=== PATIENT | female | born 1930 | race Caucasian/White ===

== ENCOUNTER 2016-08-28 10:21 | Emergency (ER) | payer MEDICARE, BC ==
[~2016-08-28] VITALS: Ht 162.6 cm; Wt 67.0 kg
[~2016-08-28 10:21] MED LIST: ARIM1TAB PO; ATOR20TA42 PO; BUDE3CAP PO; CALC600T34 PO; CITA10SO PO; DABI150 PO; GLUC500C3 PO; HYDR-3533 PO; IMOD2TAB PO; LOSA50TA PO; METO25 PO; PROM25SU8 PO; VITA100017 PO; VITA400C70 PO; VITA400D PO
[2016-08-28 10:27] VITALS: BP 148/74; PULSE 84; RESP 16; TEMP 100.2; O2SAT 96
[2016-08-28] MEDS ORDERED: [UNRECOGNIZED DRUG - OTHER] PO (11:00)
[2016-08-28] MEDS ORDERED: CALC500T35 PO (11:00)
[2016-08-28] MEDS ORDERED: LOSA50TA2 PO (11:00)
[2016-08-28] MEDS ORDERED: RIVA1.5C PO (11:00)
[2016-08-28] MEDS ORDERED: ANAS1TAB PO (11:00)
[2016-08-28] MEDS ORDERED: METO25TA3 PO (11:00)
[2016-08-28] MEDS ORDERED: VITA10007 PO (11:00)
[2016-08-28] MEDS ORDERED: BOSWTAB2 PO (11:00)
[2016-08-28] MEDS ORDERED: CITA10TA4 PO (11:00)
[2016-08-28] MEDS ORDERED: BUDE9TAB PO (11:00)
[2016-08-28] MEDS ORDERED: PRAD150C PO (11:00)
[2016-08-28] MEDS ORDERED: ATOR20TA15 PO (11:00)
[2016-08-28] MEDS ORDERED: AMOX875T PO (11:13)
--- NOTE | 2016-08-28 11:17 | PD ---
HPI Chief Complaint: ENT Complaint Time Seen by Provider: 11:14 Travel History International Travel<30 days: No Contact w/Intl Traveler<30days: No Traveled to known affect area: No History of Present Illness HPI 85-year-old female that presents to the ED for evaluation of cold-like symptoms including right ear pain. Per patient she has had cough and runny nose for the past couple of days but the right ear has been given issues since 2 days now. Patient she denies any shortness of breath chest pain. No fevers chills or sweats. No sick contacts. No recent travel. No discharge from the ear. Patient has a lot of congestion. No allergies to medication. Has not taken anything for this. Has not seen anybody for this. PFSH Past Medical History Hx Anticoagulant Therapy: Yes Arthritis: Yes Atrial Fibrillation: Yes Heart Rhythm Problems: Yes Cancer: No Cardiovascular Problems: Yes High Cholesterol: Yes Congestive Heart Failure: No Cerebrovascular Accident: Yes (TIA) Diabetes: No Diminished Hearing: No Endocrine: No Gastrointestinal Disorders: No Glaucoma: No Genitourinary: No Hepatitis: No Hiatal Hernia: No Hypertension: Yes Immune Disorder: No Implanted Vascular Access Dvce: No Musculoskeletal: Yes Neurologic: Yes Psychiatric: No Reproductive: No Respiratory: No Immunizations Current: Yes Thyroid Disease: No Tetanus Vaccination: < 5 Years Influenza Vaccination: Yes ?: Not Menopausal: Yes Past Surgical History Abdominal Surgery: No Cardiac Surgery: No Ear Surgery: No Endocrine Surgery: No Eye Surgery: Yes (BILAT cataract removal) Gynecologic Surgery: Yes (total hysterectomy) Hysterectomy: Yes Joint Replacement: Yes (bilat hips) Neurologic Surgery: No Oral Surgery: Yes (tonsillectomy) Pacemaker: No Thoracic Surgery: No Tonsillectomy: Yes Other Surgery: Yes (CAROTID SURGERY) Social History Alcohol Use: No Tobacco Use: No (QUIT 1980 SMOKES SOCIALLY CIGS) Substance Use: No Allergies-Medications (Allergen,Severity, Reaction): Coded Allergies: No Known Allergies (Verified , 08/28/16) Reported Meds & Prescriptions Reported Meds & Active Scripts Active Amoxicillin 875 Mg Tab 875 Mg PO BID 10 Days Reported Citalopram (Citalopram Hydrobromide) 10 Mg Tab 10 Mg PO DAILY Rivastigmine 1.5 Mg Cap 1.5 Mg PO BIDPC Pradaxa (Dabigatran) 150 Mg Cap 150 Mg PO BID Metoprolol Tartrate 25 Mg Tab 12.5 Mg PO BID Losartan-Hydrochlorothiazide 50-12.5 Mg Tab 1 Tab PO DAILY Glucosamine Complex (Jyyslafwu-Prplqnihvcg-Oakjijf) 1 Tab 1 Tab PO DAILY Calcium (Oyster Shell) 500 Mg Tab 1 Tab PO DAILY Vitamin C (Ascorbic Acid) 1,000 Mg Tab 1,000 Mg PO DAILY Uceris ER 24 HR (Budesonide) 9 Mg Kameron 9 Mg PO DAILY Atorvastatin (Atorvastatin Calcium) 20 Mg Tab 20 Mg PO HS [neumenda] 28 Mg PO DAILY Anastrozole 1 Mg Tab 1 Mg PO DAILY Review of Systems Except as stated in HPI: all other systems reviewed are Neg Physical Exam Narrative GENERAL: Well-nourished, well-developed patient in no apparent distress. SKIN: Warm and dry. HEAD: Atraumatic. Normocephalic. EYES: Pupils equal and round reactive to light and accommodation. No scleral icterus. No injection or drainage. ENT: No nasal bleeding or discharge. Mucous membranes pink and moist. Right TM is red and bulging. Left TM is clear with no sign of infection or perforation. Both ear canals intact.. No mastoid tenderness. Ear canals are intact bilaterally. No lymphadenopathy. Nostril mucosa is red and moist with clear mucus noted. No sinus tenderness to palpation noted. Tonsils are not enlarged or swollen. No ulvua Deviation. Tongue is midline. NECK: Trachea midline. No JVD. No meningeal signs noted CARDIOVASCULAR: Regular rate and rhythm. RESPIRATORY: No accessory muscle use. Clear to auscultation. Breath sounds equal bilaterally. Data Data Last Documented VS Vital Signs Date Time Temp Pulse Resp B/P Pulse Ox O2 Delivery O2 Flow Rate FiO2 08/28/16 10:27 100.2 84 16 148/74 96 [facility] Medical Decision Making Medical Screen Exam Complete: Yes Emergency Medical Condition: Yes Medical Record Reviewed: Yes Differential Diagnosis Otitis media versus otitis externa versus mastoiditis versus foreign body versus cerumen impaction versus perforated eardrum versus eustachian tube dysfunction versus bug in the ear versus serous otitis media versus sinusitis Narrative Course 85-year-old female that presents to the ED for evaluation of cold-like symptoms. Patient was properly examined and was found to have signs and symptoms consistent with sinusitis with right otitis media. Patient will be treated for this with amoxicillin. Take OTC meds as needed. Patient was given Tylenol here for her slight fever. Told follow with PCP. See ED if worsening symptoms. Diagnosis Primary Impression: Otitis media Qualified Code: H65.01 - Right acute serous otitis media, recurrence not specified Additional Impression: Sinusitis Qualified Code: J01.00 - Acute non-recurrent maxillary sinusitis Patient Instructions: General Instructions Additional Instructions: Motrin and Tylenol for pain and fever. You can use [id number] antihistamine as well as well as Mucinex as needed for runny nose and congestion. Cough drops for cough as needed. Drink plenty of fluids. Follow-up with PCP. See ED for worsening symptoms. Med/Other Pt SpecificInfo: Prescription(s) given Scripts Amoxicillin 875 Mg [id number] Mg PO BID 10 Days Prov:Anish Charlton MD 08/28/16 Disposition: 01 DISCHARGE HOME Condition: Stable Liam Easley Aug 28, 2016 11:17
[2016-08-28] MEDS ORDERED: ACETAMINOPHEN 325 MG TAB PO ONE (11:30)
[2016-08-29] MEDS ORDERED: MEMA28CA PO (09:24)
== END 2016-08-28 11:38 | disposition home or self-care (01) ==
LOC: PHEFT 10:21
DX: H66.91 Otitis media, unspecified, right ear (principal); J32.9 Chronic sinusitis, unspecified; I10 Essential (primary) hypertension; I48.91 Unspecified atrial fibrillation; Z79.01 Long term (current) use of anticoagulants
CPT/HCPCS: 99283

== ENCOUNTER 2017-01-15 16:34 | Emergency (ER) | payer MEDICARE, BC ==
[~2017-01-15] VITALS: Ht 162.6 cm; Wt 70.0 kg
[~2017-01-15 16:34] MED LIST changes: +AMOX875T PO; +ANAS1TAB PO; -ARIM1TAB PO; +ATOR20TA15 PO; -ATOR20TA42 PO; +BOSWTAB2 PO; -BUDE3CAP PO; +BUDE9TAB PO; +CALC500T35 PO; -CALC600T34 PO; -CITA10SO PO; +CITA10TA4 PO; -DABI150 PO; -GLUC500C3 PO; -HYDR-3533 PO; -IMOD2TAB PO; -LOSA50TA PO; +LOSA50TA2 PO; +MEMA28CA PO; -METO25 PO; +METO25TA3 PO; +PRAD150C PO; -PROM25SU8 PO; +RIVA1.5C PO; -VITA100017 PO; +VITA10007 PO; -VITA400C70 PO; -VITA400D PO
[2017-01-15 16:37] VITALS: BP 148/88; PULSE 79; RESP 15; TEMP 97.6; O2SAT 97
== END 2017-01-15 16:55 | disposition left against medical advice (07) ==
LOC: PHED 16:34
DX: R03.0 Elevated blood-pressure reading, without diagnosis of hypertension (principal); Z53.21 Procedure and treatment not carried out due to patient leaving prior to being seen by health care provider
CPT/HCPCS: 99281

== ENCOUNTER 2017-09-06 11:21 | Emergency (ER) | payer MEDICARE, BC ==
[~2017-09-06] VITALS: Ht 167.6 cm; Wt 65.0 kg
[~2017-09-06 11:21] MED LIST changes: +CALC12502 PO; -CALC500T35 PO
[2017-09-06 11:25] VITALS: BP 152/103; PULSE 62; RESP 14; TEMP 97.7; O2SAT 98
[2017-09-06] MEDS ORDERED: BACT800T5 PO (12:42)
--- NOTE | 2017-09-06 12:43 | PD ---
HPI Chief Complaint: Skin Problem Time Seen by Provider: 12:24 Travel History International Travel<30 days: No Contact w/Intl Traveler<30days: No Traveled to known affect area: No History of Present Illness HPI 86-year-old female presents to the emergency department with complaint of an area of redness to her left wright that was noticed today. Patient has history of dementia and she is accompanied by her . Denies fever, vomiting. The patient denies pain. Dr. Garrido is primary care provider. Has not taken any medications or try treatments to alleviate the symptoms. Symptoms are mild in severity. No known aggravating or relieving factors. No known allergies. Has no other medical complaints. No other modifying factors or associated signs and symptoms. PFSH Past Medical History Hx Anticoagulant Therapy: Yes Arthritis: Yes Atrial Fibrillation: Yes Heart Rhythm Problems: Yes Cancer: No Cardiovascular Problems: Yes High Cholesterol: Yes Congestive Heart Failure: No Cerebrovascular Accident: Yes (TIA) Diabetes: No Diminished Hearing: No Endocrine: No Gastrointestinal Disorders: No Glaucoma: No Genitourinary: No Hepatitis: No Hiatal Hernia: No Hypertension: Yes Immune Disorder: No Implanted Vascular Access Dvce: No Musculoskeletal: Yes Neurologic: Yes Psychiatric: No Reproductive: No Respiratory: No Immunizations Current: Yes Thyroid Disease: No Menopausal: Yes Past Surgical History Abdominal Surgery: No Cardiac Surgery: No Ear Surgery: No Endocrine Surgery: No Eye Surgery: Yes (BILAT cataract removal) Gynecologic Surgery: Yes (total hysterectomy) Hysterectomy: Yes Joint Replacement: Yes (bilat hips) Neurologic Surgery: No Oral Surgery: Yes (tonsillectomy) Pacemaker: No Thoracic Surgery: No Tonsillectomy: Yes Other Surgery: Yes (CAROTID SURGERY) Social History Alcohol Use: No Tobacco Use: No (QUIT 1980 SMOKES SOCIALLY CIGS) Substance Use: No Allergies-Medications (Allergen,Severity, Reaction): Coded Allergies: No Known Allergies (Verified Adverse Reaction, Unknown, 09/06/17) Reported Meds & Prescriptions Reported Meds & Active Scripts Active Bactrim DS (Sulfamethoxazole-Trimethoprim) 800-160 Mg Tab 1 Tab PO BID 10 Days Amoxicillin 875 Mg Tab 875 Mg PO BID 10 Days Reported Namenda Xr (Memantine) 28 Mg Caper 28 Mg PO DAILY Citalopram (Citalopram Hydrobromide) 10 Mg Tab 10 Mg PO DAILY Rivastigmine 1.5 Mg Cap 1.5 Mg PO BIDPC Pradaxa (Dabigatran) 150 Mg Cap 150 Mg PO BID Metoprolol Tartrate 25 Mg Tab 12.5 Mg PO BID Losartan-Hydrochlorothiazide 50-12.5 Mg Tab 1 Tab PO DAILY Glucosamine Complex (Xiengvccz-Wpqgovuirmg-Nrsavqv) 1 Tab 1 Tab PO DAILY Calcium (Oyster Shell) 500 Mg Tab 1 Tab PO DAILY Vitamin C (Ascorbic Acid) 1,000 Mg Tab 1,000 Mg PO DAILY Uceris ER 24 HR (Budesonide) 9 Mg Kameron 9 Mg PO DAILY Atorvastatin (Atorvastatin Calcium) 20 Mg Tab 20 Mg PO HS Anastrozole 1 Mg Tab 1 Mg PO DAILY Review of Systems Except as stated in HPI: all other systems reviewed are Neg Physical Exam Narrative GENERAL: Well-nourished, well-developed elderly, female patient, in no acute distress; afebrile, nontoxic-appearing SKIN: Warm and dry. Left wright with what appears to be a small approximately 1 cm skin abrasion with some surrounding erythema; areas tender to touch and with warmth to touch; without drainage. Left lower extremities supple and nontender 2+ pedal pulse. HEAD: Atraumatic. Normocephalic. EYES: Pupils equal and round. No scleral icterus. No injection or drainage. ENT: Mucosa pink and moist. Airway patent. NECK: Trachea midline. CARDIOVASCULAR: Regular rate. RESPIRATORY: No accessory muscle use. GASTROINTESTINAL: Round. MUSCULOSKELETAL: No obvious deformities. No clubbing. No cyanosis. No edema. NEUROLOGICAL: Awake and alert. Oriented 3. No obvious cranial nerve deficits. Motor grossly within normal limits. Normal speech. PSYCHIATRIC: Appropriate mood and affect; insight and judgment normal. Data Data Last Documented VS Vital Signs Date Time Temp Pulse Resp B/P (MAP) Pulse Ox O2 Delivery O2 Flow Rate FiO2 09/06/17 11:25 97.7 62 14 152/103 (119) 98 Room Air Orders Orders Ed Discharge Order (09/06/17 12:43) MDM Medical Decision Making Medical Screen Exam Complete: Yes Emergency Medical Condition: Yes Medical Record Reviewed: Yes Differential Diagnosis Cellulitis, infected wound, medical clearance Narrative Course 86-year-old female with what appears to be an abrasion to the left wright and some surrounding cellulitis. She was afebrile and nontoxic-appearing. Denies fever, vomiting. Bactrim prescribed for home. Instructed patient to follow up with primary care provider. Patient verbalizes understanding and agreement with treatment plan. Patient is medically cleared and stable for discharge. Discussed reasons to return to the emergency department. Patient agrees with treatment plan. The patients vital signs are stable and the patient is stable for outpatient follow-up and treatment. Patient discharged home, stable and in no acute distress. Diagnosis Primary Impression: Cellulitis of left lower leg Additional Impression: Infected wound Referrals: Primary Care Physician Patient Instructions: Cellulitis (ED), General Instructions, Wound Infection ( ED) Additional Instructions: Complete full course of antibiotics Warm compresses to the affected area Keep area clean and dry Topical antibiotic ointment as directed and as needed for wound care Keep area covered with a bandage as needed Ibuprofen or Tylenol as directed and as needed for pain and inflammation Follow-up with primary care provider Return to emergency department immediately with worsening of symptoms Med/Other Pt SpecificInfo: Prescription(s) given Scripts Sulfamethoxazole-Trimethoprim (Bactrim DS) 800-160 Mg Tab 1 TAB PO BID for Infection for 10 Days, #20 TAB 0 Refills Prov: Becca Bullard 09/06/17 Disposition: 01 DISCHARGE HOME Condition: Stable Becca Bullard Sep 06, 2017 12:43
== END 2017-09-06 12:52 | disposition home or self-care (01) ==
LOC: NEPK 11:21
DX: L03.116 Cellulitis of left lower limb (principal); F03.90 Unspecified dementia, unspecified severity, without behavioral disturbance, psychotic disturbance, mood disturbance, and anxiety; M19.90 Unspecified osteoarthritis, unspecified site; I48.91 Unspecified atrial fibrillation; E78.00 Pure hypercholesterolemia, unspecified; I10 Essential (primary) hypertension; Z79.899 Other long term (current) drug therapy; Z86.73 Personal history of transient ischemic attack (TIA), and cerebral infarction without residual deficits
CPT/HCPCS: 99283

== ENCOUNTER 2017-11-28 11:22 | Emergency (ER) | payer MEDICARE, BC ==
[~2017-11-28] VITALS: Ht 165.1 cm; Wt 68.0 kg
[~2017-11-28 11:22] MED LIST changes: +BACT800T5 PO
[2017-11-28 11:31] VITALS: BP 130/69; PULSE 59; RESP 16; TEMP 99.2; O2SAT 97
[2017-11-28] MEDS ORDERED: SODIUM CHLORIDE 0.9% FLUSH 10 ML FLUSH IVF PRN (12:00)
--- NOTE | 2017-11-28 12:05 | PD ---
HPI Chief Complaint: Cold / Flu Symptoms Time Seen by Provider: 11:40 Travel History International Travel<30 days: No Contact w/Intl Traveler<30days: No Traveled to known affect area: No History of Present Illness HPI The patient is a 87-year-old female who presents to the emergency department with her for cough. The [place] [facility] [place] and went to urgent care earlier today for cough. Urgent care sent the patient to the emergency department for possible blood work. The patient does have a history of atrial fibrillation but denies any history of congestive heart failure. She does note a dry nonproductive cough that started last night, but denies any shortness of breath or chest pain. The patient is a somewhat poor and limited historian, however, the provides most of the history. She denies any nasal drainage, postnasal drip, shortness of breath, shortness of breath with exertion, chest pain or tightness, or lower extremity edema. The states he recently had an upper respiratory infection with cough for 2 weeks and was placed on penicillin which improved his symptoms. He states the patient has no history of bronchitis or pneumonia. The patient does not smoke. Symptoms are mild to moderate and there are no current alleviating factors. PFSH Past Medical History Hx Anticoagulant Therapy: No Arthritis: Yes Atrial Fibrillation: Yes Heart Rhythm Problems: Yes Cancer: No Cardiovascular Problems: Yes High Cholesterol: Yes Congestive Heart Failure: No Cerebrovascular Accident: Yes (TIA) Diabetes: No Diminished Hearing: No Endocrine: No Gastrointestinal Disorders: No Glaucoma: No Genitourinary: No Hepatitis: No Hiatal Hernia: No Hypertension: Yes Immune Disorder: No Implanted Vascular Access Dvce: No Medical other: Yes (back and neck problems) Musculoskeletal: Yes Neurologic: Yes Psychiatric: No Reproductive: No Respiratory: No Immunizations Current: Yes Thyroid Disease: No Tetanus Vaccination: > 5 Years Influenza Vaccination: No ?: Not Menopausal: Yes Past Surgical History Abdominal Surgery: No Cardiac Surgery: No Ear Surgery: No Endocrine Surgery: No Eye Surgery: Yes (BILAT cataract removal) Gynecologic Surgery: Yes (total hysterectomy) Hysterectomy: Yes Joint Replacement: Yes (bilat hips) Neurologic Surgery: No Oral Surgery: Yes (tonsillectomy) Pacemaker: No Thoracic Surgery: No Tonsillectomy: Yes Other Surgery: Yes (CAROTID SURGERY) Social History Alcohol Use: No Tobacco Use: No (QUIT 1980 SMOKES SOCIALLY CIGS) Substance Use: No Allergies-Medications (Allergen,Severity, Reaction): Coded Allergies: No Known Allergies (Verified Adverse Reaction, Unknown, 11/28/17) Reported Meds & Prescriptions Reported Meds & Active Scripts Active Bactrim DS (Sulfamethoxazole-Trimethoprim) 800-160 Mg Tab 1 Tab PO BID 10 Days Amoxicillin 875 Mg Tab 875 Mg PO BID 10 Days Reported Namenda Xr (Memantine) 28 Mg Caper 28 Mg PO DAILY Citalopram (Citalopram Hydrobromide) 10 Mg Tab 10 Mg PO DAILY Rivastigmine 1.5 Mg Cap 1.5 Mg PO BIDPC Pradaxa (Dabigatran) 150 Mg Cap 150 Mg PO BID Metoprolol Tartrate 25 Mg Tab 12.5 Mg PO BID Losartan-Hydrochlorothiazide 50-12.5 Mg Tab 1 Tab PO DAILY Glucosamine Complex (Tetbxsney-Gaunoutzgxl-Avyyctf) 1 Tab 1 Tab PO DAILY Calcium (Oyster Shell) 500 Mg Tab 1 Tab PO DAILY Vitamin C (Ascorbic Acid) 1,000 Mg Tab 1,000 Mg PO DAILY Uceris ER 24 HR (Budesonide) 9 Mg Kameron 9 Mg PO DAILY Atorvastatin (Atorvastatin Calcium) 20 Mg Tab 20 Mg PO HS Anastrozole 1 Mg Tab 1 Mg PO DAILY Review of Systems ROS Limitations: Poor Historian, Other: (Most of the history obtained from the ) Except as stated in HPI: all other systems reviewed are Neg General / Constitutional: No: Fever HENT: No: Rhinitis, Rhinorrhea, Congestion Cardiovascular: No: Chest Pain or Discomfort, Dyspnea on exertion Respiratory: Positive: Cough, No: Shortness of Breath, Wheezing Gastrointestinal: No: Nausea, Vomiting, Abdominal Pain Musculoskeletal: No: Edema Physical Exam Narrative GENERAL: Awake, alert, pleasant 87-year-old female who appears her stated age and is in no acute respiratory distress. SKIN: Focused skin assessment warm/dry. HEAD: Atraumatic. Normocephalic. EYES: Pupils equal and round. No scleral icterus. No injection or drainage. ENT: No nasal bleeding or discharge. Mucous membranes pink and moist. NECK: Trachea midline. No JVD. CARDIOVASCULAR: Irregularly irregular, heart rate in the 60s. RESPIRATORY: No accessory muscle use. Clear to auscultation. Breath sounds equal bilaterally. GASTROINTESTINAL: Abdomen soft, non-tender, nondistended. No rebound tenderness. MUSCULOSKELETAL: No obvious deformities. No clubbing. No cyanosis. Trace edema lower extremities. NEUROLOGICAL: Awake and alert. No obvious cranial nerve deficits. Motor grossly within normal limits. Normal speech. PSYCHIATRIC: Appropriate mood and affect; insight and judgment normal. Data Data Last Documented VS Vital Signs Date Time Temp Pulse Resp B/P (MAP) Pulse Ox O2 Delivery O2 Flow Rate FiO2 11/28/17 12:15 95 Room Air 11/28/17 11:45 16 11/28/17 11:31 99.2 59 130/69 (89) Orders Orders Complete Blood Count With Diff (11/28/17 11:59) Comprehensive Metabolic Panel (11/28/17 11:59) B-Type Natriuretic Peptide (11/28/17 11:59) Magnesium (Mg) (11/28/17 11:59) Influenzae A/B Antigen (11/28/17 11:59) Iv Access Insert/Monitor (11/28/17 11:59) Electrocardiogram (11/28/17 11:59) Ecg Monitoring (11/28/17 11:59) Oximetry (11/28/17 11:59) Oxygen Administration (11/28/17 11:59) Chest, Single Ap (11/28/17 11:59) Sodium Chloride 0.9% Flush (Ns Flush) (11/28/17 12:00) Labs Laboratory Tests Test 11/28/17 12:18 White Blood Count 4.2 TH/MM3 Red Blood Count 4.25 MIL/MM3 Hemoglobin 13.0 GM/DL Hematocrit 39.3 % Mean Corpuscular Volume 92.4 FL Mean Corpuscular Hemoglobin 30.6 PG Mean Corpuscular Hemoglobin Concent 33.1 % Red Cell Distribution Width 14.5 % Platelet Count 207 TH/MM3 Mean Platelet Volume 7.3 FL Neutrophils (%) (Auto) 60.9 % Lymphocytes (%) (Auto) 23.9 % Monocytes (%) (Auto) 11.4 % Eosinophils (%) (Auto) 2.5 % Basophils (%) (Auto) 1.3 % Neutrophils # (Auto) 2.5 TH/MM3 Lymphocytes # (Auto) 1.0 TH/MM3 Monocytes # (Auto) 0.5 TH/MM3 Eosinophils # (Auto) 0.1 TH/MM3 Basophils # (Auto) 0.1 TH/MM3 CBC Comment DIFF FINAL Differential Comment Blood Urea Nitrogen 15 MG/DL Creatinine 0.97 MG/DL Random Glucose 81 MG/DL Total Protein 6.6 GM/DL Albumin 3.0 GM/DL Calcium Level 8.2 MG/DL Magnesium Level 2.1 MG/DL Alkaline Phosphatase 60 U/L Aspartate Amino Transf (AST/SGOT) 30 U/L Alanine Aminotransferase (ALT/SGPT) 27 U/L Total Bilirubin 0.7 MG/DL Sodium Level 140 MEQ/L Potassium Level 4.2 MEQ/L Chloride Level 108 MEQ/L Carbon Dioxide Level 25.9 MEQ/L Anion Gap 6 MEQ/L Estimat Glomerular Filtration Rate 54 ML/MIN B-Type Natriuretic Peptide 354 PG/ML MDM Medical Decision Making Medical Screen Exam Complete: Yes Emergency Medical Condition: Yes Medical Record Reviewed: Yes Interpretation(s) EKG reveals atrial fibrillation with a rate of 64. Last Impressions Chest X-Ray 11/28/17 1159 Signed Impressions: Service Date/Time: Tuesday, November 28, 2017 12:27 - CONCLUSION: No acute cardiopulmonary disease demonstrated. Mild chronic interstitial opacities of the bases. Jamil Tee MD Laboratory Tests Test 11/28/17 12:18 White Blood Count 4.2 TH/MM3 Red Blood Count 4.25 MIL/MM3 Hemoglobin 13.0 GM/DL Hematocrit 39.3 % Mean Corpuscular Volume 92.4 FL Mean Corpuscular Hemoglobin 30.6 PG Mean Corpuscular Hemoglobin Concent 33.1 % Red Cell Distribution Width 14.5 % Platelet Count 207 TH/MM3 Mean Platelet Volume 7.3 FL Neutrophils (%) (Auto) 60.9 % Lymphocytes (%) (Auto) 23.9 % Monocytes (%) (Auto) 11.4 % Eosinophils (%) (Auto) 2.5 % Basophils (%) (Auto) 1.3 % Neutrophils # (Auto) 2.5 TH/MM3 Lymphocytes # (Auto) 1.0 TH/MM3 Monocytes # (Auto) 0.5 TH/MM3 Eosinophils # (Auto) 0.1 TH/MM3 Basophils # (Auto) 0.1 TH/MM3 CBC Comment DIFF FINAL Differential Comment Blood Urea Nitrogen 15 MG/DL Creatinine 0.97 MG/DL Random Glucose 81 MG/DL Total Protein 6.6 GM/DL Albumin 3.0 GM/DL Calcium Level 8.2 MG/DL Magnesium Level 2.1 MG/DL Alkaline Phosphatase 60 U/L Aspartate Amino Transf (AST/SGOT) 30 U/L Alanine Aminotransferase (ALT/SGPT) 27 U/L Total Bilirubin 0.7 MG/DL Sodium Level 140 MEQ/L Potassium Level 4.2 MEQ/L Chloride Level 108 MEQ/L Carbon Dioxide Level 25.9 MEQ/L Anion Gap 6 MEQ/L Estimat Glomerular Filtration Rate 54 ML/MIN B-Type Natriuretic Peptide 354 PG/ML Date/Time Source Procedure Growth Status 11/28/17 12:18 Nasal Aspirate Influenza Types A,B Antigen (JOANN) - Final NEGATIVE FOR FLU A AND B ANTIGEN.... Complete Differential Diagnosis Differential diagnosis includes bronchitis, postnasal drip, pneumonia, pleural effusion, pulmonary edema, congestive heart failure, pulmonary embolism, URI. Narrative Course IV was established, labs are drawn and sent, the patient was placed on cardiac telemetry monitoring and continuous pulse oximetry monitoring. EKG was ordered and interpreted chest x-ray was obtained. Influenza screen was sent to lab. Influenza screen was negative. Chest x-ray reveals no acute cardiopulmonary disease, chronic lower lobe opacities bilateral. BNP is slightly elevated at 354, previous BNP was 204. However, no hypoxia, no tachycardia, and no significant effusions or pulmonary edema on x-ray. Patient's cough may be secondary to mild CHF versus bronchitis. Patient is on hydrochlorothiazide, is not on any loop diuretics. The patient was administered Lasix 20 mg intravenously 1. She is advised to follow-up with her primary physician. Return if symptoms worsen or progress. Diagnosis Primary Impression: Cough Additional Impression: Congestive heart failure Qualified Codes: I50.9 - Heart failure, unspecified Patient Instructions: General Instructions Additional Instructions: Please provide the patient and her a copy of the x-ray results, flu results, and lab results at discharge. Follow-up with your primary physician. Return if symptoms worsen or progress. Disposition: 01 DISCHARGE HOME Condition: Stable Garth Hodges MD Nov 28, 2017 12:05
[2017-11-28 12:15] VITALS: O2SAT 95
[2017-11-28 12:24] LABS: AUTOMATED NEUTROPHIL # 2.5 TH/MM3 (1.8-7.7); BASOPHIL # 0.1 TH/MM3 (0-0.2); BASOPHIL % 1.3 % (0.0-2.0); EOSINOPHIL # 0.1 TH/MM3 (0-0.4); EOSINOPHIL % 2.5 % (0.0-4.0); HEMATOCRIT 39.3 % (35.0-46.0); LYMPH % 23.9 % (9.0-44.0); MEAN CELL VOLUME 92.4 FL (80.0-100.0); MEAN CORPUSCULAR HEMOGLOBIN 30.6 PG (27.0-34.0); MEAN CORPUSCULAR HGB CONC 33.1 % (32.0-36.0); MEAN PLATELET VOLUME 7.3 FL (7.0-11.0); MONO % 11.4 % (0.0-8.0); MONOCYTE # 0.5 TH/MM3 (0-0.9); NEUT % 60.9 % (16.0-70.0); PLATELET COUNT 207 TH/MM3 (150-450); RED BLOOD COUNT 4.25 MIL/MM3 (4.00-5.30); RED CELL DISTRIBUTION WIDTH 14.5 % (11.6-17.2); WHITE BLOOD COUNT 4.2 TH/MM3 (4.0-11.0)
[2017-11-28 12:31] LABS: CHLORIDE 108 MEQ/L (98-107); SODIUM (NA) 140 MEQ/L (136-145)
[2017-11-28 12:33] LABS: CALCIUM 8.2 MG/DL (8.5-10.1)
[2017-11-28 12:34] LABS: BICARBONATE 25.9 MEQ/L (21.0-32.0); GLUCOSE,RANDOM 81 MG/DL (74-106); MAGNESIUM 2.1 MG/DL (1.5-2.5)
[2017-11-28 12:35] LABS: BLOOD UREA NITROGEN 15 MG/DL (7-18)
[2017-11-28 12:37] LABS: ALT (GPT) 27 U/L (10-53); AST (GOT) 30 U/L (15-37); CREATININE 0.97 MG/DL (0.50-1.00); GLOMERULAR FILTRATION RATE 54 ML/MIN (>89)
[2017-11-28 12:39] LABS: TOTAL BILIRUBIN ADULT 0.7 MG/DL (0.2-1.0); TOTAL PROTEIN 6.6 GM/DL (6.4-8.2)
[2017-11-28 12:40] LABS: ALKALINE PHOSPHATASE 60 U/L (45-117)
--- NOTE | 2017-11-28 12:46 | RADRPT ---
EXAM DATE/TIME: 11/28/2017 12:27 [facility] COMPARISON: No previous studies available for comparison. INDICATIONS : Shortness of breath. MEDICAL HISTORY : Hypertension. Cardiovascular disease Carcinoma, breast. SURGICAL HISTORY : Hysterectomy. bilateral hip replacement ENCOUNTER: Initial ACUITY: 1 day PAIN SCORE: 0/10 LOCATION: Bilateral chest FINDINGS: Mild chronic interstitial opacities at the bases are again noted. No acute pneumonia seen. No pleural effusion or pneumothorax. Heart size stable upper limits of normal. CONCLUSION: No acute cardiopulmonary disease demonstrated. Mild chronic interstitial opacities of the bases. Jamil Tee MD on November 28, 2017 at 12:43 Board Certified Radiologist. This report was verified electronically.
[2017-11-28 13:15] VITALS: BP 159/83; PULSE 91; RESP 16; O2SAT 96
[2017-11-28] MEDS ORDERED: FUROSEMIDE 20 MG/2 ML VIAL IV PUSH ONE (13:15)
--- NOTE | 2017-11-28 15:58 | EKG ---
Date Performed: 11/28/2017 Time Performed: 12:06:23 PTAGE: 87 years EKG: ATRIAL FIBRILLATION ABNORMAL RHYTHM ECG PREVIOUS TRACING : 06/19/2016 04.35 No significant change from previous tracing noted. DOCTOR: Sha Valencia Interpretating Date/Time 11/28/2017 15:57:07
== END 2017-11-28 13:15 | disposition home or self-care (01) ==
LOC: PHED 11:22
DX: R05 Cough (principal); I11.0 Hypertensive heart disease with heart failure; I50.9 Heart failure, unspecified; I48.91 Unspecified atrial fibrillation; R94.31 Abnormal electrocardiogram [ECG] [EKG]; M19.90 Unspecified osteoarthritis, unspecified site; E78.00 Pure hypercholesterolemia, unspecified; Z86.73 Personal history of transient ischemic attack (TIA), and cerebral infarction without residual deficits
CPT/HCPCS: 71045; 80053; 83735; 83880; 85025; 87804; 93005; 96374; 99285; J1940